=== PATIENT | male | born 1950 | race Caucasian/White ===

== ENCOUNTER 2017-08-30 18:03 | Emergency (ER) | payer MEDICARE, OTHER ==
[~2017-08-30 18:03] MED LIST: CLOPIDOGREL BISULFATE 300 MG TABLET ONE; ENOXAPARIN SODIUM INJ 80 MG/0.8 ML DISP.SYRIN SUBCUT SCH
[2017-08-30] MEDS ORDERED: ATORVASTATIN CALCIUM 80 MG TABLET PO ONE (18:29)
[2017-08-30] MEDS ORDERED: NITROGLYCERIN 0.4 MG/TAB 25 TAB/BOTTLE SL PRN (18:29)
[2017-08-30] MEDS ORDERED: ASPIRIN 81 MG TABLET, CHEWABLE PO ONE (18:29)
[2017-08-30] MEDS ORDERED: ENOXAPARIN SODIUM INJ 80 MG/0.8 ML DISP.SYRIN SUBCUT SCH (18:30)
--- NOTE | 2017-08-30 18:46 | ER Document Report ---
ED General - General Chief Complaint: Chest Pain Stated Complaint: CHEST PAIN Time Seen by Provider: 08/30/17 18:29 Notes: Patient is a 66-year-old male with a past medical history of hypertension, hyperlipidemia, smoker of tobacco, prior stent placed to the LAD approximately 17 years ago without any repeat catheterizations or stress test since that time who presents with 45 minutes of severe, crushing left-sided chest pain with radiation to the bilateral upper extremities and the jaw. He notes associated diaphoresis and shortness of breath. He states that his pain started abruptly and has been ongoing since that time. Nothing improves or worsens this pain. He denies any history of similar symptoms in the past except for when he had his heart attack. He has not contacted his primary doctor regarding today's concerns. TRAVEL OUTSIDE OF THE [place] IN LAST 30 DAYS: No - Related Data Allergies/Adverse Reactions: No Known Allergies Allergy (Verified 03/11/12 09:16) Past Medical History - General Information source: Patient - Social History Smoking Status: Current Every Day Smoker Frequency of alcohol use: None Drug Abuse: None Lives with: Spouse/Significant other Family History: Reviewed & Not Pertinent - Past Medical History Cardiac Medical History: Reports: Hx Coronary Artery Disease - stent Endocrine Medical History: Denies: Hx Diabetes Mellitus Type 1, Hx Diabetes Mellitus Type 2 - Immunizations Hx Diphtheria, Pertussis, Tetanus Vaccination: Yes Review of Systems - Review of Systems Notes: Constitutional: Negative for fever. HENT: Negative for sore throat. Eyes: Negative for visual changes. Cardiovascular: Positive for chest pain. Respiratory: Positive for shortness of breath. Gastrointestinal: Negative for abdominal pain, vomiting or diarrhea. Genitourinary: Negative for dysuria. Musculoskeletal: Negative for back pain. Skin: Negative for rash. Neurological: Negative for headaches, weakness or numbness. 10 point ROS negative except as marked above and in HPI. Physical Exam - Vital signs Vitals: Resp Pulse Ox 12 99 08/30/17 18:20 08/30/17 18:20 Interpretation: Hypertensive Notes: PHYSICAL EXAMINATION: GENERAL: Appears uncomfortable, ill HEAD: Atraumatic, normocephalic. EYES: Pupils equal round and reactive to light, extraocular movements intact, sclera anicteric, conjunctiva are normal. ENT: nares patent, oropharynx clear without exudates. Moderately dry mucous membranes. NECK: Normal range of motion, supple without lymphadenopathy LUNGS: Breath sounds clear to auscultation bilaterally and equal. No wheezes rales or rhonchi. HEART: Regular rate and rhythm without murmurs ABDOMEN: Soft, nontender, normoactive bowel sounds. No guarding, no rebound. No masses appreciated. EXTREMITIES: Normal range of motion, no pitting or edema. No cyanosis. NEUROLOGICAL: No focal neurological deficits. Moves all extremities spontaneously and on command. PSYCH: Normal mood, normal affect. SKIN: Warm, Dry, normal turgor, no rashes or lesions noted. Course - Re-evaluation Re-evalutation: 08/30/17 18:30 Patient presents with active left-sided chest pressure radiating to the bilateral upper extremities and the left side of his jaw with findings on EKG consistent with an NSTEMI with ST depressions in the inferior and lateral leads. However, I am concerned about elevation in aVR in association with these diffuse ST depressions, concerning for possible STEMI equivalent. The patient was immediately assessed. He is hemodynamically within normal limits although is noted to be hypertensive. Patient immediately given aspirin, lovenox, atorvastatin, and sublingual nitro. I have also immediately faxed this EKG to [facility] and have contacted their STEMI line. 08/30/17 19:00 Patient has had up to 10 beat runs of ventricular tachycardia. This started shortly after the patient received nitroglycerin suggesting a possible reperfusion dysrhythmia. The patient's pain is improving after receiving a sublingual nitroglycerin. His repeat EKG shows bigeminy as well as ongoing diffuse ST depression and elevation in aVR. I have spoken to Dr. Colette Valero who has accepted this patient as a STEMI equivalent. An amiodarone infusion is being started this patient continues to have repeated beats of ventricular tachycardia. The patient is an extremely difficult IV access and we are attempting multiple points of access without IV ultrasound guidance. We do have one-point of IV access at this time. Will withhold lytics at this time as we are able to fly the patient and he should arrive at [facility] within the catheterization window. 08/30/17 19:14 Patient's third repeat EKG now shows that his ST depressions have significantly improved with medical therapy. He is now also chest pain-free and no longer has pain in the arms or jaw. He is no longer diaphoretic. I have called back [facility] and updated them on the patient's improvement and spoke with Dr. Valero. We have agreed to continue to proceed with the initial transfer as a STEMI particular given the initial EKG. Will continue to reassess at regular intervals. 08/30/17 19:26 Patient continues to be chest pain-free. And nitroglycerin infusion has been started. No longer having any additional beats of ventricular tachycardia which I suspect was a reperfusion dysrhythmia after receiving nitroglycerin. We have ground transport has air transport is no longer available. Will continue to reassess at regular intervals. 08/30/17 19:32 Patient continues to pain free. Transport has arrived for patient transfer. - Vital Signs Vital signs: Temp Pulse Resp BP Pulse Ox 98.1 F 89 16 147/72 H 96 08/30/17 19:35 08/30/17 19:35 08/30/17 19:35 08/30/17 19:35 08/30/17 19:35 - Laboratory Result Diagrams: 08/30/17 19:07 08/30/17 19:07 Laboratory results interpreted by me: 08/30/17 08/30/17 19:07 19:07 WBC 13.3 H Absolute Neutrophils 8.4 H Sodium 145.8 H Potassium 3.4 L Glucose 73 L - Diagnostic Test Radiology reviewed: Image reviewed, Reports reviewed Radiology results interpreted by me: 08/31/17 04:02 Chest x-ray: No acute infiltrate or pneumothorax - EKG Interpretation by Me Additional EKG results interpreted by me: 08/30/17 18:[address] elevation in aVR and ST depressions in V3-6 as well as II and III. Worrisome for a STEMI equivalent. 08/30/17 19:27 First repeat EKG: Diffuse premature beats consistent with bigeminy with associated ST depression in the lateral and inferior leads as well as elevation in aVR. Second repeat EKG: ST depressions have resolved in the inferior and lateral leads, minimal elevation in aVR. Critical Care Note - Critical Care Note Total time excluding time spent on procedures (mins): 46 Comments: Critical care time spent obtaining history from patient or surrogate, discussions with consultants, development of treatment plan with patient or surrogate, evaluation of patient's response to treatment, examination of patient , ordering and performing treatments and interventions, ordering and review of laboratory studies, re-evaluation of patient's condition, ordering and review of radiographic studies and review of old charts Discharge - Discharge Clinical Impression: Essential hypertension Myocardial infarction Qualifiers: Myocardial infarction type: ST elevation myocardial infarction Involved coronary artery: unspecified coronary artery Qualified Code(s): I21.3 - ST elevation (STEMI) myocardial infarction of unspecified site Condition: Critical Disposition: [facility] Referrals: AMRIT BETANCUR MD [Primary Care Provider] - Follow up as needed
[2017-08-30] MEDS ORDERED: AMIODARONE HCL 150 MG in DEXTROSE 5%-WATER 100 ML IV ONE (18:50)
[2017-08-30] MEDS ORDERED: DEXTROSE 5%-WATER 500 ML with AMIODARONE HCL 900 MG IV PRN ×2 (18:50)
[2017-08-30] MEDS ORDERED: AMIODARONE HCL INJ 150 MG/3 ML VIAL IV ONE ×2 (18:56→19:10)
[2017-08-30] MEDS ORDERED: CLOPIDOGREL BISULFATE 75 MG TABLET PO ONE (18:59)
[2017-08-30] MEDS ORDERED: NITROGLYCERIN/D5W 50 MG/250 ML RTUINJ IV ONE (19:19)
[2017-08-30] MEDS ORDERED: NITROGLYCERIN/D5W 50 MG/250 ML RTUINJ IV PRN (19:26)
--- NOTE | 2017-08-30 19:27 | RADIOLOGY REPORT (SQ) ---
EXAM DESCRIPTION: CHEST SINGLE VIEW COMPLETED DATE/TIME: 08/30/2017 7:16 pm REASON FOR STUDY: chest pain COMPARISON: None. EXAM PARAMETERS: NUMBER OF VIEWS: One view. TECHNIQUE: Single frontal radiographic view of the chest acquired. RADIATION DOSE: NA LIMITATIONS: None. FINDINGS: LUNGS AND PLEURA: No opacities, masses or pneumothorax. No pleural effusion. MEDIASTINUM AND HILAR STRUCTURES: No masses. Contour normal. HEART AND VASCULAR STRUCTURES: Heart normal in size. Normal vasculature. BONES: No acute findings. HARDWARE: None in the chest. OTHER: No other significant finding. IMPRESSION: NO ACUTE RADIOGRAPHIC FINDING IN THE CHEST. TECHNICAL DOCUMENTATION: JOB ID: [id number] [employer]- All Rights Reserved Reading location - IP/workstation name: [email or web address]
[2017-08-30 19:32] LABS: ABSOLUTE BASOPHILS # (AUTO) 0.1 10^3/uL (0.0-0.2); ABSOLUTE EOSINOPHILS # (AUTO) 0.2 10^3/uL (0.0-0.6); ABSOLUTE LYMPHOCYTES (AUTO) 3.8 10^3/uL (0.5-4.7); ABSOLUTE MONOCYTES (AUTO) 0.7 10^3/uL (0.1-1.4); ABSOLUTE NEUT (AUTO) 8.4 10^3/uL (1.7-8.2); BASOPHILS % (AUTO) 0.6 % (0-2); EOSINOPHILS % (AUTO) 1.7 % (0-6); HEMATOCRIT 48.2 % (37.9-51.0); HEMOGLOBIN 16.2 g/dL (13.5-17.0); LYMPHOCYTES % (AUTO) 28.9 % (13-45); MEAN CORPUSCULAR HEMOGLOBIN 29.3 pg (27.0-33.4); MEAN CORPUSCULAR HGB CONC 33.7 g/dL (32.0-36.0); MEAN CORPUSCULAR VOLUME 87 fl (80-97); MONOCYTES % (AUTO) 5.5 % (3-13); PLATELET COUNT 321 10^3/uL (150-450); RED BLOOD COUNT 5.53 10^6/uL (4.35-5.55); RED CELL DISTRIBUTION WIDTH 13.8 % (11.5-14.0); SEGMENTED NEUTROPHILS % (AUTO) 63.3 % (42-78); TOTAL CELLS COUNTED % (AUTO) 100 %; WHITE BLOOD COUNT 13.3 10^3/uL (4.0-10.5)
[2017-08-30 20:12] LABS: ANION GAP 16 (5-19); BLOOD UREA NITROGEN 10 mg/dL (7-20); CALCIUM 9.8 mg/dL (8.4-10.2); CARBON DIOXIDE 25 mmol/L (22-30); CHLORIDE 105 mmol/L (98-107); GLUCOSE 73 mg/dL (75-110); POTASSIUM 3.4 mmol/L (3.6-5.0); SODIUM 145.8 mmol/L (137-145)
--- NOTE | 2017-08-30 21:33 | EKG REPORT ---
SEVERITY:- ABNORMAL ECG - SINUS TACHYCARDIA VENTRICULAR BIGEMINY INCOMPLETE RIGHT BUNDLE BRANCH BLOCK REPOL ABNRM SUGGESTS ISCHEMIA, DIFFUSE LEADS , SUSPECT L MAIN CRITICIAL STENOSIS., CK=LINICAL CORRELA TION NEEDED. : Confirmed by: German Huang MD 30-Aug-2017 21:33:14
--- NOTE | 2017-08-30 21:35 | EKG REPORT ---
SEVERITY:- ABNORMAL ECG - SINUS RHYTHM REPOL ABNRM SUGGESTS ISCHEMIA, DIFFUSE LEADS , NEED TO CONSIDER LEFT MAIN CRITICAL STENOSIS, CONSIDER EARLY CARDIAC CATH. : Confirmed by: German Huang MD 30-Aug-2017 21:35:08
[2017-08-30 22:53] VITALS: BP 147/72
--- NOTE | 2017-08-31 06:36 | EKG REPORT ---
SEVERITY:- BORDERLINE ECG - SINUS RHYTHM BORDERLINE T WAVE ABNORMALITIES : Confirmed by: German Huang MD 31-Aug-2017 06:35:41
== END 2017-08-30 19:45 | disposition short-term general hospital (02) ==
LOC: ER 18:03
DX: I21.3 ST elevation (STEMI) myocardial infarction of unspecified site (principal); I10 Essential (primary) hypertension; F17.200 Nicotine dependence, unspecified, uncomplicated; R07.9 Chest pain, unspecified; E78.00 Pure hypercholesterolemia, unspecified
CPT/HCPCS: 93005; 99291; 96372; 96374; 96375; 36415; 85025; 80048; 84484; 71045; 93010; A9270 ×4; J3490; J1650; J0282